=== PATIENT | male | born 1985 | race Hispanic/Latino ===

== ENCOUNTER → 2019-07-08 | Emergency (ER) | payer SELFPAY ==
[~2019-07-08] VITALS: Ht 175.3 cm; Wt 69.8 kg
[~2019-07-08] MED LIST: ACETAMINOPHEN325 M2 PO
== END ==
LOC: ED 21:21
DX: M25.572 Pain in left ankle and joints of left foot (principal)
CPT/HCPCS: 73610

== ENCOUNTER 2019-09-23 12:18 | Emergency (ER) | payer SELFPAY ==
[~2019-09-23] VITALS: Ht 175.3 cm; Wt 70.3 kg
[2019-09-23] MEDS ORDERED: AMOXICILLIN500 MG PO (13:29)
== END 2019-09-23 13:42 | disposition home or self-care (01) ==
LOC: ED 12:18
DX: K04.7 Periapical abscess without sinus (principal); F17.200 Nicotine dependence, unspecified, uncomplicated
CPT/HCPCS: 99283